=== PATIENT | female | born 1980 | race Caucasian/White ===

== ENCOUNTER 2017-09-28 10:29 | Emergency (ER) | payer SELFPAY ==
[2017-09-28 12:39] VITALS: BP 124/77
--- NOTE | 2017-09-28 13:17 | UC ---
Throat Pain/Nasal Jose Luis HPI - HPI Summary HPI Summary: TWO WEEKS OF CHEST CONGESTION, PRODUCTIVE COUGH. NO FEVER. NO WHEEZING. NO FACIAL PAIN. - History of Current Complaint Chief Complaint: UCRespiratory Stated Complaint: CHEST JOSE LUIS Time Seen by Provider: 09/28/17 13:02 Hx Obtained From: Patient Hx Last Menstrual Period: 09/26/17 Onset/Duration: Gradual Onset, Lasting Weeks, Still Present Severity: Mild Cough: Productive Associated Signs & Symptoms: Positive: Hoarseness. Negative: Sinus Discomfort, Nasal Discharge, Fever - Epiglottits Risk Factors Epiglottis Risk Factors: Negative - Allergies/Home Medications Allergies/Adverse Reactions: Allergies Allergy/AdvReac Type Severity Reaction Status Date / Time No Known Allergies Allergy Verified 09/28/17 12:39 PMH/Surg Hx/FS Hx/Imm Hx Previously Healthy: Yes - Surgical History Surgical History: Yes Surgery Procedure, Year, and Place: tonsilectomy/ adenoidectomy - Social History Occupation: Employed Full-time Lives: With Family Alcohol Use: Occasionally Substance Use Type: None Smoking Status (MU): Current Some Day Smoker Length of Time of Smoking/Using Tobacco: on and off for 15 years Have You Smoked in the Last Year: Yes Review of Systems Constitutional: Negative Skin: Negative Eyes: Negative ENT: Negative Respiratory: Cough Cardiovascular: Negative Gastrointestinal: Negative Genitourinary: Negative Motor: Negative Neurovascular: Negative Musculoskeletal: Negative Neurological: Negative Psychological: Negative Is Patient Immunocompromised?: No All Other Systems Reviewed And Are Negative: Yes Physical Exam Triage Information Reviewed: Yes Appearance: No Pain Distress, Well-Nourished, Ill-Appearing - MILDLY Vital Signs: Initial Vital Signs Temp 98.5 F 09/28/17 12:35 Pulse 64 09/28/17 12:35 Resp 14 09/28/17 12:35 BP 124/77 09/28/17 12:35 Pulse Ox 98 09/28/17 12:35 Vital Signs Reviewed: Yes Eye Exam: Normal ENT Exam: Normal ENT: Positive: Normal ENT inspection, Pharynx normal, TMs normal. Negative: Sinus tenderness Dental Exam: Normal Neck exam: Normal Neck: Positive: Supple, Nontender, No Lymphadenopathy Respiratory Exam: Other - COUGH Respiratory: Positive: Chest non-tender, Lungs clear, Normal breath sounds, No respiratory distress, No accessory muscle use Cardiovascular Exam: Normal Cardiovascular: Positive: RRR, No Murmur, Pulses Normal Abdominal Exam: Normal Musculoskeletal Exam: Normal Musculoskeletal: Positive: Strength Intact, ROM Intact Neurological Exam: Normal Psychological Exam: Normal Skin Exam: Normal Throat Pain/Nasal Course/Dx - Differential Dx/Diagnosis Differential Diagnosis/HQI/PQRI: Pharyngitis, Sinusitis, Tonsillitis, URI Provider Diagnoses: UPPER RESPIRATORY INFECTION Discharge - Discharge Plan Condition: Stable Disposition: HOME Prescriptions: Benzonatate CAP* [Tessalon 100 MG CAP*] 100 mg PO TID PRN #[id number] cap PRN Reason: Cough Patient Education Materials: Upper Respiratory Infection (ED) Referrals: Milagro Jiménez MD [Primary Care Provider] -
== END 2017-09-28 13:17 | disposition home or self-care (01) ==
LOC: UCCORT 10:29
DX: J06.9 Acute upper respiratory infection, unspecified (principal); Z72.0 Tobacco use
CPT/HCPCS: 99202; G0463

== ENCOUNTER 2019-04-08 19:09 | Emergency (ER) | payer OTHER ==
[2019-04-08 20:07] VITALS: BP 123/75
--- NOTE | 2019-04-08 20:12 | UC ---
Laceration HPI - HPI Summary HPI Summary: Patient presents to urgent care for evaluation of an avulsion skin injury to her left index finger. Patient states she was using a butter knife that was related to cut frozen butter. Patient states she slipped and return her left index. Patient states she was unable to get the bleeding controlled so she came here. Patient comfortable with a cotton ball and tape at present. Patient is not on anticoagulation. Patient is not immunocompromised. Patient states her last tetanus was 8 years ago. Patient's medications reviewed. - History Of Current Complaint Chief Complaint: UCLaceration Stated Complaint: LEFT POINTER FINGER LAC Hx Obtained From: Patient Hx Last Menstrual Period: 03/18/19 Pain Intensity: 0 - Allergies/Home Medications Allergies/Adverse Reactions: Allergies Allergy/AdvReac Type Severity Reaction Status Date / Time No Known Allergies Allergy Verified 04/08/19 20:00 Home Medications: Home Medications Cholecalciferol TAB* [Vitamin D TAB*] 1,000 unit PO DAILY 04/08/19 [History Confirmed 04/08/19] Fluconazole [Fluconazole 200 mg tab] 200 mg PO WEEKLY 04/08/19 [History Confirmed 04/08/19] PMH/Surg Hx/FS Hx/Imm Hx Previously Healthy: Yes - Surgical History Surgical History: Yes Surgery Procedure, Year, and Place: tonsilectomy/ adenoidectomy - Family History Known Family History: Positive: Non-Contributory - Social History Occupation: Employed Full-time Lives: With Family Alcohol Use: Occasionally Substance Use Type: None Smoking Status (MU): Current Some Day Smoker Length of Time of Smoking/Using Tobacco: on and off for 15 years Have You Smoked in the Last Year: Yes - Immunization History Most Recent Tetanus Shot: 8 YEARS AGO Review of Systems All Other Systems Reviewed And Are Negative: Yes Constitutional: Positive: Negative Skin: Positive: Other - left index Is Patient Immunocompromised?: No Physical Exam - Summary Physical Exam Summary: Vital Signs Reviewed: Yes A+Ox3, no distress Eyes: Conjunctiva Clear ENT: Hearing grossly normal neck: supple Respiratory: Positive: No respiratory distress, No accessory muscle use Cardiovascular: skin color reflect adequate perfusion Musculoskeletal Exam: + flex/ext mcp, dip, pip Neurological: Positive: Alert, ambulatory without difficulty + gross sensation to fingertip Psychological: Positive: Normal Response To Family Skin: Positive: pt with skin avulsion to pad left index - active ooze CBT < 2 sec distal non suturable, no nail involvement Triage Information Reviewed: Yes Vital Signs: Initial Vital Signs Temp 99.2 F 04/08/19 20:02 Pulse 55 04/08/19 20:02 Resp 16 04/08/19 20:02 BP 123/75 04/08/19 20:02 Pulse Ox 100 04/08/19 20:02 Laceration Course/Dx - Course/Dx Course Of Treatment: Patient presents to urgent care status post skin avulsion to left index finger after using a knife to cut frozen butter. Patient states had difficulty controlling bleeding at home so she came here. On exam vital signs are stable. Patient has a slow ooze from an avulsion nonsuturable injury to her left index. Cover with Surgifoam 4 x 4 and tube gauze. Discussed with patient wound care, elevation. Patient's tetanus was 8 years ago. Patient declined a tetanus booster tonight. Return precautions discussed. Patient comfortable in agreement with plan. - Diagnosis Provider Diagnosis: Avulsion of skin of finger Discharge - Sign-Out/Discharge Documenting (check all that apply): Patient Departure All imaging exams completed and their final reports reviewed: No Studies - Discharge Plan Condition: Stable Disposition: HOME Patient Education Materials: Skin Avulsion (ED) Referrals: Milagro Jiménez MD [Primary Care Provider] - Additional Instructions: - Keep wound dry and covered for the first 24-36 hour. After that, okay to remove bandage - keep the bottom layer against the wound. If this come off, okay to replace with the gelfoam given you tonight - If you are unable to keep the gel foam on your wound and it is not bleeding, okay to cover with a thick layer of antibiotic ointment and bandage - elevate your finger to help with swelling and pain - Contact your doctor or return with questions or concerns - Billing Disposition and Condition Condition: STABLE Disposition: Home
[2019-04-08] MEDS ORDERED: Gelfoam 12-7 ADSORBABL SPONGE* 1 EA SPONGE TOPICAL ONE (20:20)
== END 2019-04-08 20:40 | disposition home or self-care (01) ==
LOC: UCCORT 19:09
DX: S61.201A Unspecified open wound of left index finger without damage to nail, initial encounter (principal); W26.0XXA Contact with knife, initial encounter; F17.290 Nicotine dependence, other tobacco product, uncomplicated
CPT/HCPCS: 99212; A9270-GY; G0463

== ENCOUNTER 2019-05-04 07:04 | Emergency (ER) | payer OTHER ==
[2019-05-04 07:17] VITALS: BP 124/70
--- NOTE | 2019-05-04 07:29 | UC ---
Throat Pain/Nasal Jose Luis HPI - HPI Summary HPI Summary: 29-year-old woman comes in with a chief complaint of one week of upper respiratory tract infection symptoms. Initially she had a sore throat and runny nose. She did see her primary care physician earlier in the illness and had a negative rapid strep and a negative Monospot. She's been using a saline nasal rinse and also started fluticasone nasal spray. Denies using any decongestants [id number]. Hot showers to help clear some of the rhinorrhea. Rhinorrhea has turned to yellow and green and she's having a lot of sinus pressure. The sore throat is decreased. She does have postnasal drip and has been coughing up sputum. Denies any shortness of breath. - History of Current Complaint Chief Complaint: UCGeneralIllness Stated Complaint: ST,RT EAR COMPLAINT,SINUS CONGESTION Time Seen by Provider: 05/04/19 07:21 Hx Last Menstrual Period: 04/19/19 Pain Intensity: 4 - Allergies/Home Medications Allergies/Adverse Reactions: Allergies Allergy/AdvReac Type Severity Reaction Status Date / Time No Known Allergies Allergy Verified 04/08/19 20:00 PMH/Surg Hx/FS Hx/Imm Hx Previously Healthy: Yes - Surgical History Surgical History: Yes Surgery Procedure, Year, and Place: tonsilectomy/ adenoidectomy - Family History Known Family History: Positive: Non-Contributory - Social History Alcohol Use: Occasionally Substance Use Type: None Smoking Status (MU): Current Some Day Smoker Length of Time of Smoking/Using Tobacco: on and off for 15 years Have You Smoked in the Last Year: Yes - Immunization History Most Recent Tetanus Shot: 8 YEARS AGO Review of Systems All Other Systems Reviewed And Are Negative: Yes Constitutional: Positive: Negative Skin: Positive: Negative Eyes: Positive: Negative ENT: Positive: Sore Throat, Nasal Discharge, Sinus Congestion, Sinus Pain/ Tenderness Respiratory: Positive: Cough Cardiovascular: Positive: Negative Gastrointestinal: Positive: Negative Motor: Positive: Negative Neurovascular: Positive: Negative Musculoskeletal: Positive: Negative Neurological: Positive: Negative Psychological: Positive: Negative Is Patient Immunocompromised?: No Physical Exam Triage Information Reviewed: Yes Appearance: No Pain Distress, Well-Nourished, Ill-Appearing - mild Vital Signs: Initial Vital Signs Temp 97.5 F 05/04/19 07:11 Pulse 74 05/04/19 07:11 Resp 16 07/07/19 07:11 BP 124/70 05/04/19 07:11 Pulse Ox 99 05/04/19 07:11 Vital Signs Reviewed: Yes Eye Exam: Normal Eyes: Positive: Conjunctiva Clear ENT: Positive: Pharyngeal erythema, Nasal congestion, Nasal drainage, TMs normal Neck: Positive: Supple Respiratory: Positive: Lungs clear, Normal breath sounds, No respiratory distress Cardiovascular: Positive: RRR Musculoskeletal Exam: Normal Musculoskeletal: Positive: Strength Intact, ROM Intact Neurological: Positive: Alert, Muscle Tone Normal Psychological Exam: Normal Psychological: Positive: Age Appropriate Behavior Skin Exam: Normal Throat Pain/Nasal Course/Dx - Course Course Of Treatment: DISCUSSED VIRAL VERSES BACTERIAL INFECTION AND THE ROLE OF ANTIBIOTICS. THE PATIENT PREFERS TO BE ON ANTIBIOTICS AT THIS TIME. - Differential Dx/Diagnosis Provider Diagnosis: Sinusitis Discharge - Sign-Out/Discharge Documenting (check all that apply): Patient Departure All imaging exams completed and their final reports reviewed: No Studies - Discharge Plan Condition: Stable Disposition: HOME Prescriptions: Amoxicillin PO (*) [Amoxicillin 875 MG (*)] 875 mg PO BID #20 tab Patient Education Materials: Sinusitis (ED) Referrals: Milagro Jiménez MD [Primary Care Provider] - Additional Instructions: FOLLOW UP WITH YOUR DOCTOR IF NOT COMPLETELY IMPROVED. GET REEVALUATED SOONER IF WORSE OR ANY QUESTIONS OR CONCERNS. - Billing Disposition and Condition Condition: STABLE Disposition: Home
== END 2019-05-04 07:33 | disposition home or self-care (01) ==
LOC: UCCORT 07:04
DX: J32.9 Chronic sinusitis, unspecified (principal); F17.200 Nicotine dependence, unspecified, uncomplicated
CPT/HCPCS: 99212; G0463